=== PATIENT | male | born 1945 | race Hispanic/Latino ===

== ENCOUNTER → 2018-03-25 | Outpatient (CLI) | payer OTHER, MEDICARE ==
[~2018-03-25] MED LIST: AMIT100T2 PEG; ASPI-555 PEG; ATOR40TA71 PEG; BACL20TA PEG; CLOP75TA32 PEG; DIATR MEGLU/DIATRIZOATE SODIUM 30 ML BOTTLE ONE; FINA5TAB41 PEG; GABA-531 PEG; ISOS30TA6 PEG; SITA100T12 PEG
== END | disposition home or self-care (01) ==
LOC: RAH 11:27
PROVIDERS: ATTEND Physician Assistant Medical
DX: K94.20 Gastrostomy complication, unspecified (principal); R13.12 Dysphagia, oropharyngeal phase
CPT/HCPCS: 74021; Q9963

== ENCOUNTER → 2019-02-25 | Outpatient (CLI) | payer OTHER, MEDICARE | END | disposition home or self-care (01) | LOC: RAH 12:57 | PROVIDERS: ATTEND Internal Medicine Gastroenterology | DX: K94.20 Gastrostomy complication, unspecified (principal); M85.88 Other specified disorders of bone density and structure, other site; K63.89 Other specified diseases of intestine | CPT/HCPCS: 74018; Q9963 ==

== ENCOUNTER → 2019-07-27 | Outpatient (CLI) | payer OTHER, MEDICARE ==
[~2019-07-27] MED LIST changes: -DIATR MEGLU/DIATRIZOATE SODIUM 30 ML BOTTLE ONE
== END | disposition home or self-care (01) ==
LOC: OIH 16:21
PROVIDERS: ATTEND Family Medicine
DX: R05 Cough (principal); E11.42 Type 2 diabetes mellitus with diabetic polyneuropathy; E11.69 Type 2 diabetes mellitus with other specified complication; Z87.891 Personal history of nicotine dependence
CPT/HCPCS: 71045